=== PATIENT | female | born 1995 | race African-American/Black ===

== ENCOUNTER → 2016-08-10 | Outpatient (REF) | payer OTHER ==
[2016-08-10 18:20] LABS: MEAN CORPUSCULAR HGB CONC 31.4 g/dl (32.0-36.5); MEAN CORPUSCULAR VOLUME 73.1 fl (80.0-96.0); RED CELL DISTRIBUTION WIDTH 17.3 % (11.5-14.5); WHITE BLOOD COUNT 9.6 K/mm3 (4.0-10.0)
[2016-08-11 09:33] LABS: CONTROL LINE HPYORI INT CTR LINE PRESENT
== END ==
LOC: M SFHCLERA 10:40
PROVIDERS: ATTEND Family Medicine
DX: D64.9 Anemia, unspecified (principal); R10.9 Unspecified abdominal pain

== ENCOUNTER → 2016-09-21 | Outpatient (REF) | payer OTHER ==
[2016-09-21 20:54] LABS: CONTROL LINE HCG INT CTR LINE PRESENT
== END ==
LOC: M SFHCLERA 14:17
PROVIDERS: ATTEND Family Medicine
DX: N93.9 Abnormal uterine and vaginal bleeding, unspecified (principal)
CPT/HCPCS: 84703; 87491; 87591; G0463

== ENCOUNTER → 2017-05-09 | Outpatient (REF) | payer OTHER ==
[2017-05-09 20:16] LABS: BASO % 0.4 % (0.0-1.0); EOS # 0.1 10^3/uL (0.0-0.50); EOS % 1.5 % (0.0-3.0); IMMATURE GRANULOCYTE % 0.3 % (0-0); LYMPH # 2.3 10^3/uL (1.5-6.5); LYMPH % 30.6 % (24.0-44.0); MEAN CORPUSCULAR HEMOGLOBIN 21.9 pg (27.0-33.0); MEAN CORPUSCULAR HGB CONC 29.4 g/dl (32.0-36.5); MONO # 0.6 10^3/uL (0.0-0.8); MONO % 8.4 % (0.0-5.0); NEUTROPHILS # 4.4 10^3/uL (1.8-7.7); NEUTROPHILS % 58.8 % (36.0-66.0); PLATELET COUNT, AUTOMATED 433 10^3/uL (150-450); RED CELL DISTRIBUTION WIDTH 17.8 % (11.5-14.5); WHITE BLOOD COUNT 7.4 10^3/uL (4.0-10.0)
[2017-05-09 20:21] LABS: ADD MORPHOLOGY? YES; MEAN CORPUSCULAR VOLUME 74.5 fl (80.0-96.0)
[2017-05-09 21:20] LABS: ANION GAP 7 MEQ/L (8-16); ANISOCYTOSIS 2+; BLOOD UREA NITROGEN 12 MG/DL (7-18); CALCIUM LEVEL 8.6 MG/DL (8.5-10.1); CARBON DIOXIDE LEVEL 27 MEQ/L (21-32); CHLORIDE LEVEL 108 MEQ/L (98-107); CREATININE FOR GFR 0.68 MG/DL (0.55-1.02); GLOMERULAR FILTRATION RATE > 60.0 (>60); GLUCOSE, FASTING 88 MG/DL (70-105); HYPOCHROMASIA 2+; POTASSIUM SERUM 4.5 MEQ/L (3.5-5.1); SODIUM LEVEL 142 MEQ/L (136-145)
== END ==
LOC: M SFHCLERA 17:14
PROVIDERS: ATTEND Family Medicine
DX: R82.90 Unspecified abnormal findings in urine (principal)

== ENCOUNTER → 2017-08-23 | Outpatient (REF) | payer OTHER ==
[2017-08-23 14:02] LABS: HEMATOCRIT 36.3 % (36.0-47.0); HEMOGLOBIN 10.9 g/dl (12.0-16.0); MEAN CORPUSCULAR VOLUME 69.8 fl (80.0-96.0); PLATELET COUNT, AUTOMATED 444 10^3/uL (150-450); RED CELL DISTRIBUTION WIDTH 19.3 % (11.5-14.5); WHITE BLOOD COUNT 9.5 10^3/uL (4.0-10.0)
[2017-08-23 14:58] LABS: HCG, SERUM QUANTITATIVE 5107 MIU/ML
[2017-08-23 15:16] LABS: RUBELLA IgG QUALITATIVE IMMUNE (IMMUNE)
[2017-08-23 15:18] LABS: HBsAg Prenatal NEGATIVE (NEGATIVE)
[2017-08-23 15:46] LABS: HEPATITIS C VIRUS ABY INDEX 0.1 INDEX (<0.8)
[2017-08-23 15:46] LABS: HIV 1&2 SCREEN CENTAUR NEGATIVE (NEGATIVE)
== END ==
LOC: M LAB REF 13:25
DX: O36.80X0 Pregnancy with inconclusive fetal viability, not applicable or unspecified (principal)

== ENCOUNTER → 2017-09-13 | Outpatient (REF) | payer OTHER ==
[2017-09-13 20:51] LABS: CHLAMYDIA DNA AMPLIFICATION NEGATIVE (NEGATIVE); GC DNA AMPLIFICATION NEGATIVE (NEGATIVE)
== END ==
LOC: M LAB REF 12:52
DX: Z01.419 Encounter for gynecological examination (general) (routine) without abnormal findings (principal)

== ENCOUNTER → 2017-10-11 | Outpatient (REF) | payer OTHER ==
[2017-10-11 13:57] LABS: SICKLE CELL SCREEN NEGATIVE (NEGATIVE)
== END ==
LOC: M LAB REF 13:20
DX: Z36.89 Encounter for other specified antenatal screening (principal)

== ENCOUNTER → 2018-02-10 | Outpatient (CLI) | payer OTHER ==
[2018-02-11 08:11] LABS: GLUCOSE CHALLENGE TEST 1 HOUR 149 MG/DL (LESS THAN 140)
== END ==
LOC: M LRY 10:25
DX: Z34.83 Encounter for supervision of other normal pregnancy, third trimester (principal)
CPT/HCPCS: 82950

== ENCOUNTER → 2018-02-17 | Outpatient (CLI) | payer OTHER ==
[2018-02-17 08:26] LABS: GLUCOSE, FASTING 92 MG/DL (LESS THAN 95)
[2018-02-17 09:40] LABS: 1 HR GLUCOSE 159 MG/DL (LESS THAN 180)
[2018-02-17 10:26] LABS: 2 HR GLUCOSE 143 MG/DL (LESS THAN 155)
[2018-02-17 12:06] LABS: 3 HR GLUCOSE 106 MG/DL (LESS THAN 140)
== END ==
LOC: M LAB 07:28
DX: R73.02 Impaired glucose tolerance (oral) (principal)
CPT/HCPCS: 82951

== ENCOUNTER → 2018-03-18 | Outpatient (REF) | payer OTHER | LOC: M LAB REF 13:21 | DX: Z34.03 Encounter for supervision of normal first pregnancy, third trimester (principal) ==

== ENCOUNTER 2018-04-22 07:15 | Inpatient (IN) | payer OTHER ==
[2018-04-22 08:52] LABS: HEMATOCRIT 31.8 % (36.0-47.0); HEMOGLOBIN 9.6 g/dl (12.0-15.5); MEAN CORPUSCULAR HEMOGLOBIN 21.2 pg (27.0-33.0); MEAN CORPUSCULAR HGB CONC 30.2 g/dl (32.0-36.5); MEAN CORPUSCULAR VOLUME 70.2 fl (80.0-96.0); PLATELET COUNT, AUTOMATED 244 10^3/uL (150-450); RED BLOOD COUNT 4.53 10^6/uL (4.00-5.40); RED CELL DISTRIBUTION WIDTH 18.6 % (11.5-14.5); WHITE BLOOD COUNT 6.2 10^3/uL (4.0-10.0)
[2018-04-22] MEDS: LACTATED RINGER'S 1000 ML IV (08:52)
[2018-04-22] MEDS: miSOPROStol 50 MCG 1/2 TAB (S0191) PO (08:54)
[2018-04-22 09:19] LABS: AMPHETAMINES URINE REFLEX NEGATIVE (NEGATIVE); BARBITURATES URINE REFLEX NEGATIVE (NEGATIVE); BENZODIAZEPINES URINE REFLEX NEGATIVE (NEGATIVE); CANNABINOIDS URINE REFLEX NEGATIVE (NEGATIVE); COCAINE METABOLITE URINE REFLE NEGATIVE (NEGATIVE); METHADONE URINE REFLEX NEGATIVE (NEGATIVE); OPIATES URINE REFLEX NEGATIVE (NEGATIVE); PHENCYCLIDINE URINE REFLEX NEGATIVE (NEGATIVE)
[2018-04-22 09:31] LABS: ALT/SGPT 10 U/L (12-78); AST/SGOT 16 U/L (7-37); BILIRUBIN,TOTAL 0.2 MG/DL (0.2-1.0); GLOMERULAR FILTRATION RATE > 60.0 (>60); LDH LACTATE DEHYDROGENASE 165 U/L (84-246); URIC ACID 4.6 MG/DL (2.6-6.0)
[2018-04-22] MEDS: PENICILLIN G POTASSIUM IV 5 MU in D5W MINI-BAG PLUS 100 ML IV (11:20)
[2018-04-22] MEDS: miSOPROStol 50 MCG 1/2 TAB (S0191) SL (13:22)
[2018-04-22] MEDS: PENICILLIN G POTASSIUM IV 2.5 MU in APPROPRIATE DILUENT 1 EA IV ×2 (15:29→20:06)
[2018-04-22] MEDS: LR 1,000 ML IV ×2 (16:52→20:08)
[2018-04-22] MEDS ORDERED: FENTANYL 2MCG/ML ROPIVACAINE 0.2% IN 0.9% NACL 200ML IVBAG As Ordered (18:16)
[2018-04-22] MEDS ORDERED: EPIDURAL/PCA KEYS XX (19:20)
[2018-04-22] MEDS ORDERED: EPIDURAL COMMENT XX (19:20)
[2018-04-22] MEDS ORDERED: REFRIGERATOR IV KEYS XX (19:20)
[2018-04-22] MEDS ORDERED: LACTATED RINGER'S 1000 ML IV (19:20)
[2018-04-22] MEDS ORDERED: ePHEDrine SULFATE 25 MG/5 ML(5MG/ML) SYRINGE IV (19:20)
[2018-04-22] MEDS ORDERED: diphenhydrAMINE INJ 50MG/ML VIAL (J1200) IV (19:20)
[2018-04-22] MEDS ORDERED: ONDANSETRON 4MG/2ML VIAL (J2405) IV ×2 (19:20→23:45)
[2018-04-22] MEDS ORDERED: NALOXONE INJ 0.4 MG/1 ML VIAL (J2310) IV ×3 (19:20→23:45)
[2018-04-22] MEDS ORDERED: BICITRA 30ML SOLN UDC As Ordered (23:24)
[2018-04-22] MEDS ORDERED: ceFAZolin 2 GM/D5W 50 ML IV BAG (J0690 PER 500MG) As Ordered (23:26)
[2018-04-22] MEDS ORDERED: MORPHINE PRES-FREE INJ 10 MG/10 ML VIAL (J2274) As Ordered (23:35)
[2018-04-22] MEDS ORDERED: LIDOCAINE PRES-FREE 2% 10ML AMP As Ordered (23:35)
[2018-04-22] MEDS ORDERED: OXYTOCIN INJ 10 UNITS/ML VIAL (J2590) As Ordered (23:35)
[2018-04-22] MEDS ORDERED: KETOROLAC 60 MG/2 ML VIAL (J1885) As Ordered (23:37)
[2018-04-22] MEDS ORDERED: ONDANSETRON 4MG/2ML VIAL (J2405) As Ordered (23:37)
[2018-04-22] MEDS ORDERED: METOCLOPRAMIDE INJ 10MG/2ML VIAL (J2765) IV (23:45)
[2018-04-22] MEDS ORDERED: NALBUPHINE HCL 10 MG/ML AMP (J2300) IV (23:45)
[2018-04-23] MEDS ORDERED: fentaNYL 100 MCG/2 ML INJECTION (J3010) IV
[2018-04-23 00:09] LABS: CORD GAS ABE V -5.4; CORD GAS HCO3 V 20.6 MEQ/L; CORD GAS O2 SAT V 46.6 %; CORD GAS PCO2 V 41.9 mmHg; CORD GAS SBC V 18.9 MEQ/L; CORD GAS TCO2 V 21.9 MEQ/L
[2018-04-23 00:11] LABS: CORD GAS ABE A -2.5; CORD GAS HCO3 A 25.5 MEQ/L; CORD GAS O2 SAT A 18.5 %; CORD GAS PCO2 A 56.7 mmHg; CORD GAS PH A 7.271 UNITS; CORD GAS PO2 A 11.5 mmHg; CORD GAS SBC A 20.4 MEQ/L; CORD GAS TCO2 A 27.3 MEQ/L
[2018-04-23] MEDS ORDERED: MEPERIDINE 50 MG/ML 1ML VIAL (J2175) As Ordered (00:12)
[2018-04-23] MEDS: OXYTOCIN DRIP 30 UNITS in APPROPRIATE DILUENT 1 EA IV (00:48)
[2018-04-23] MEDS ORDERED: NORCO, ANEXSIA 5/325MG TABLET (HYDROcodone/ACETAMINOPHEN) PO ×2 (01:00)
[2018-04-23] MEDS ORDERED: MEASLES,MUMPS,RUBELLA VACCINE INJ (MMR-II) (90707) SC (01:00)
[2018-04-23] MEDS ORDERED: ONDANSETRON 4MG/2ML VIAL (J2405) IV ×2 (01:00)
[2018-04-23] MEDS ORDERED: MOM 30ML SUSPENSION UDC PO (01:00)
[2018-04-23] MEDS ORDERED: RHOGAM 300 MCG (1500 IU) INJ (J2790) IM (01:00)
[2018-04-23] MEDS ORDERED: PERCOCET 5MG/325MG TAB As Ordered (01:49)
[2018-04-23] MEDS: FENTANYL/ROPIVACAINE/NACL BAG 200 ML EPIDURAL (01:52)
[2018-04-23] MEDS ORDERED: INFLUENZA QUADRIVALENT PF VACCINE 0.5ML SYRINGE (90686) IM (09:00)
[2018-04-23] MEDS: IBUPROFEN 800 MG TAB PO ×3 (09:02→23:38)
[2018-04-23] MEDS: PRENATAL VITAMINS CHEWABLE TABLET PO (09:02)
[2018-04-23] MEDS: DOCUSATE SODIUM 100 MG CAP PO ×2 (09:02→20:55)
[2018-04-24 06:57] LABS: HEMATOCRIT 26.2 % (36.0-47.0); HEMOGLOBIN 7.8 g/dl (12.0-15.5); MEAN CORPUSCULAR HGB CONC 29.8 g/dl (32.0-36.5); MEAN CORPUSCULAR VOLUME 70.4 fl (80.0-96.0); PLATELET COUNT, AUTOMATED 244 10^3/uL (150-450); RED BLOOD COUNT 3.72 10^6/uL (4.00-5.40); RED CELL DISTRIBUTION WIDTH 18.8 % (11.5-14.5); WHITE BLOOD COUNT 10.2 10^3/uL (4.0-10.0)
[2018-04-24] MEDS: IBUPROFEN 800 MG TAB PO ×3 (08:55→23:43)
[2018-04-24] MEDS: DOCUSATE SODIUM 100 MG CAP PO ×2 (08:55→21:10)
[2018-04-24] MEDS: PRENATAL VITAMINS CHEWABLE TABLET PO (08:55)
[2018-04-25] MEDS: DOCUSATE SODIUM 100 MG CAP PO (07:32)
[2018-04-25] MEDS: PRENATAL VITAMINS CHEWABLE TABLET PO (07:32)
[2018-04-25] MEDS: IBUPROFEN 800 MG TAB PO (07:33)
[2018-04-25] MEDS: INFLUENZA QUADRIVALENT PF VACCINE 0.5ML SYRINGE (90686) IM (07:34)
== END 2018-04-25 13:05 | disposition home or self-care (01) | DRG 766 ==
LOC: M LDI 07:15 → M OBS 04-23 02:00
PROC: 10D00Z1 Extraction of Products of Conception, Low, Open Approach (ICD-10-PCS; principal; 2018-04-22 23:37)
PROC: 3E0DXGC Introduction of Other Therapeutic Substance into Mouth and Pharynx, External Approach (ICD-10-PCS; 2018-04-22 23:37)
DX: O48.0 Post-term pregnancy (principal); Z37.0 Single live birth; Z3A.40 40 weeks gestation of pregnancy; O99.824 Streptococcus B carrier state complicating childbirth; E66.9 Obesity, unspecified; O76 Abnormality in fetal heart rate and rhythm complicating labor and delivery; O61.0 Failed medical induction of labor; O69.81X0 Labor and delivery complicated by cord around neck, without compression, not applicable or unspecified; O99.214 Obesity complicating childbirth; Z68.36 Body mass index [BMI] 36.0-36.9, adult